=== PATIENT | female | born 1990 | race Hispanic/Latino ===

== ENCOUNTER 2021-06-19 08:31 | Outpatient (CLI) | payer OTHER | END 2021-06-19 08:32 | disposition home or self-care (01) | LOC: BICULT 08:31 | PROVIDERS: ATTEND Family Medicine | DX: Z34.82 Encounter for supervision of other normal pregnancy, second trimester (principal); Z3A.20 20 weeks gestation of pregnancy | CPT/HCPCS: 76805 ==

== ENCOUNTER 2022-02-01 11:11 | Emergency (ER) | payer OTHER ==
[2022-02-01 12:06] LABS: #Eosinphils 0.2 thou/uL (0.0-0.7); #Lymphocytes 1.8 thou/uL (1.20-3.40); #Monocytes 0.6 thou/uL (0.11-0.59); %Basophils 0.2 % (0.0-1.0); %Eosinophils 1.9 % (0.0-10.0); %Lymphocytes 15.5 % (21.0-51.0); %Monocytes 5.3 % (0.0-10.0); Hemoglobin 11.1 g/dL (12.0-16.0); Mean Corpuscular HGB CONC 32.2 g/dL (32.0-36.0); Mean Corpuscular Hemoglobin 25.2 pg (27.0-31.0); Mean Corpuscular Volume 78.1 fL (78.0-98.0); Mean Platelet Volume 8.8 fL (7.4-10.4); Platelet Count 258 thou/uL (130-400); RBC Distribution Width 13.4 % (11.5-14.5); White Blood Cell (WBC) Count 11.6 thou/uL (4.8-10.8)
[2022-02-01] MEDS ORDERED: Morphine 4 MG/ML VIAL ONE (12:06)
[2022-02-01] MEDS ORDERED: Ondansetron PF 4 MG/2 ML Vial ONE (12:06)
[2022-02-01 12:20] LABS: BHCG - Serum Negative (NEGATIVE); Pregs Control Background? CLEAR/WHITE (CLR/WHITE); Pregs Control Bar Appear? YES (CONTROL BAR)
[2022-02-01 12:27] LABS: ALT (SGPT) 10 U/L (8-55); AST (SGOT) 13 U/L (5-34); Albumin 4.3 g/dL (3.5-5.0); Alkaline Phosphatase 57 U/L (40-110); Anion Gap 18 mmol/L (10-20); BUN (Urea Nitrogen) 14 mg/dL (7.0-18.7); Bilirubin, Total 0.3 mg/dL (0.2-1.2); Calc. Creatinine Clearance 0 mL/min (70-130); Calcium 9.5 mg/dL (7.8-10.44); Carbon Dioxide 24 mmol/L (22-29); Chloride 102 mmol/L (98-107); Estimated GFR 118; Globulin 3.3 g/dL (2.4-3.5); Glucose 146 mg/dL (70-105); Lipase 19 U/L (8-78); Potassium 4.2 mmol/L (3.5-5.1); Protein, Total 7.6 g/dL (6.0-8.3); Sodium 140 mmol/L (136-145)
[2022-02-01 12:39] LABS: Bacteria/HPF None Seen HPF (None Seen); Bilirubin Negative (Negative); Blood, Urine 3+ (Negative); Clarity Turbid (Clear); Glucose, Urine (Dipstick) Normal (Negative); Ketone, Urine Trace mg/dL (Negative); Leukocyte 25 Leu/uL (Negative); Nitrite Negative (Negative); Protein, Urine (Dipstick) 20 mg/dL (Neg-Trace); RBC/HPF Greater than 50 HPF (0-3); Specific Gravity, Urine 1.022 (1.002-1.036); Squamous Epithelial None Seen HPF (0-3); Urobilinogen Normal mg/dL (Less than 2); WBC/HPF 0-3 HPF (0-3); pH, Urine 6.5 (5.0-9.0)
[2022-02-01] MEDS ORDERED: Iopamidol-370 76% 500 ML 1 ML ONE (14:33)
== END 2022-02-01 14:21 | disposition home or self-care (01) ==
LOC: ERS 11:11
DX: R10.31 Right lower quadrant pain (principal); M54.50 Low back pain, unspecified; T83.2 Mechanical complication of graft of urinary organ
CPT/HCPCS: 74177; 80053; 81003; 81015; 83690; 84703; 85025; 96361; 96374; 96375; J2270; J2405; Q9967